=== PATIENT | male | born 1965 | race Caucasian/White ===

== ENCOUNTER 2018-04-07 08:15 | Emergency (ER) | payer OTHER, SELFPAY ==
[2018-04-07 08:17] VITALS: BP 149/93; PULSE 82; RESP 16; TEMP 36.7; O2SAT 98; BMI 32.6
--- NOTE | 2018-04-07 08:27 | RAD_ITS ---
STUDY: X-RAY - RIGHT SHOULDER REASON FOR EXAM: Male, 52 years old. Right shoulder pain following recent injury. TECHNIQUE: 4 view(s) of the shoulder. COMPARISON: None. FINDINGS: Normal glenohumeral articulation. There is degenerative arthrosis of the acromioclavicular joint without inferior osseous spur formation. Normal acromion. Normal humeral head and visualized proximal humerus. There is periarticular soft tissue calcification consistent with a calcific tendinitis. Normal visualized pulmonary apex. RAD/Shoulder min 2 Views IMPRESSION: There is evidence of a calcific tendinitis. Degenerative changes of the acromioclavicular joint. Electronically Signed: Tyrell Moore MD at 8:52 EST Tel [phone], Service support ,
--- NOTE | 2018-04-07 08:28 | ED.VISSUMM ---
- ER Visit Summary Date of Service: 04/07/18 Chief Complaint: Right shoulder pain History of Present Illness: The patient is a 52 M who has right shoulder pain. 2 days ago he was riding in his body when the horse tugged on the reigns and pulled his right arm. He has had pain in the right shoulder since then. Hurts to move it. He has tried Advil at home without any relief. He states that this happened about a year ago but it got better. He has had no previous shoulder surgeries. Physical Examination: Vital signs reviewed. He has tenderness to palpation of the AC joint. There is no clavicular tenderness. He has decreased range of motion secondary to the pain. Test Results: Right shoulder x-ray reveals chronic/degenerative changes Emergency Department Course and Treatment: My concern is that he may have a rotator cuff injury with his limited range of motion because of the pain. I will place him in a sling. He was instructed to come out of the sling multiple times a day for range of motion exercises. I will give him naproxen for pain at home. He got one Shelby tablet here. I will give him orthopedic follow-up. Treatment Plan: [] Disposition: Discharge Impression: Right shoulder pain This note was generated with [employer] dictation software. It may contain incorrect words, spelling, and punctuation that were not noted in review of the chart prior to signing ED Disposition - Plan for ED Patient: Chief Complaint: Upper Extremity Injury Referrals: Rajendra Garcia MD [Primary Care Provider] -
[2018-04-07] MEDS: HYDROcodone Bitartrate/Apap 5/325 Tablet PO (08:49)
--- NOTE | 2018-04-07 09:10 | ED.DEP ---
ED Disposition - Plan for ED Patient: Disposition: Home or Assisted Living Chief Complaint: Upper Extremity Injury Instructions: ED Shoulder Pain [facility] Prescriptions: Naproxen [Naprosyn] 500 mg PO BID PRN #20 tab Referrals: Rajendra Garcia MD [Primary Care Provider] - Rafael Awan DO [STAFF PHYSICIAN] -
== END 2018-04-07 09:27 | disposition home or self-care (01) ==
PROVIDERS: Emergency Provider Emergency Medicine; Family Provider Family Medicine; PCP Family Medicine
DX: M25.511 Pain in right shoulder (principal); X50.9XXA Other and unspecified overexertion or strenuous movements or postures, initial encounter; Y93.52 Activity, horseback riding; Y92.9 Unspecified place or not applicable
CPT/HCPCS: 73030; 99283

== ENCOUNTER 2020-01-18 20:59 | Emergency (ER) | payer OTHER, SELFPAY ==
[2020-01-18 21:00] VITALS: BP 116/56; PULSE 96; RESP 20; TEMP 37.4; O2SAT 96; BMI 32.5
--- NOTE | 2020-01-18 21:32 | RAD_ITS ---
STUDY: X-RAY CHEST REASON FOR EXAM: Male, 54 years old. COLD SYMPTOMS, FEVER TECHNIQUE: Frontal and lateral views COMPARISON: 06/23/2013 FINDINGS: The lungs are not fully expanded. Possible left perihilar infiltrate. Normal size heart. Normal mediastinum and geo. Normal visualized pulmonary arteries. Normal visualized aortic arch and descending thoracic aorta. Normal visualized thoracic spine. Normal visualized ribs, clavicles, and shoulders. There is no demonstrated abnormality of the visualized soft tissue structures of the upper abdomen. RAD/Chest PA and Lateral IMPRESSION: Possible left perihilar infiltrate. Electronically Signed: Dennis Bower DO at 22:29 EDT Tel [phone], Service support ,
[2020-01-18 21:35] LABS: Absolute Lymphocyte Count 1.02 X10^3/uL (0.83-4.51); Absolute Neutrophil Count 3.6 X10^3/uL (2.0-7.7); Basophil# 0.01 X10^3/uL; Basophil% 0.2 % (0-1); Eosinophil# 0.01 X10^3/uL; Eosinophils% 0.2 % (0-5); Hematocrit 42.9 % (40-54); Hemoglobin 14.5 g/dL (13.0-16.5); Lymphocyte # 1.02 X10^3/ul (4.0); Lymphocyte % 20.2 % (19-41); Mean Corp Hgb Conc 33.8 g/dL (32-36); Mean Corpuscular Volume 94.7 fL (80-94); Mean Platelet Vol. 9.6 fl (6.2-12.0); Monocyte# 0.41 X10^3/uL; Monocyte% 8.1 % (0-10); NRBC Flagged by Analyzer 0 % (0-5); Neutrophil # 3.58 X10^3/uL (2.7-7.7); Neutrophil % 70.9 % (47-70); Platelet Count 192 K/mm3 (150-450); RBC Distribution Width CV 12.5 % (11.6-14.6); RBC Distribution Width SD 43.7 fl (35.1-43.9); Red Blood Count 4.53 M/mm3 (4.6-6.2); White Blood Count 5.1 K/mm3 (4.4-11.0)
--- NOTE | 2020-01-18 21:43 | ED.VIS.GEN ---
History of Present Illness Chief Complaint: Fever Detail of Chief Complaint: Presents with fever, slight cough that is nonproductive Informant: Patient, Significant Other Onset: - Saturday, 2 days ago Context: Sudden Onset Timing: Intermittent Quality: Fever, nonproductive cough Location: Respiratory Current Severity: Mild Maximum Severity: Moderate Worsened by: Nothing Relieved by: Fever controlled with antipyretic Associated Symptoms: No COVID exposure, no loss of taste or smell, see HPI Narrative: Patient is a middle-age male who is a non-smoker and presents with fever that started Saturday. Fevers been intermittent. He does report slight cough. His major concern is pneumonia. He denies headache. He denies visual, ocular auditory symptoms. He denies rhinorrhea, congestion or postnasal drainage. Denies sore throat. Denies loss of taste or smell. He denies photophobia, neck pain or neck stiffness. He denies chest discomfort. He denies nausea, vomiting diarrhea. He denies dysuria, frequency, urgency or hematuria. He denies muscle aches or joint aches. He denies rash. Prior similar symptoms: Yes - Pneumonia Recent Illness/Hospitalization: No - Past Medical History (1) Pneumonia Status: Resolved Past Medical History - Allergies and Home Meds Allergies/Adverse Reactions: Allergies No Known Allergies Allergy (Verified 04/07/18 08:19) Primary Care Physician: Rajendra Garcia MD [Primary Care Provider] - Prior records reviewed: Yes Surgical History: no surgical history Lives: Spouse/ Significant Other Smoking Status: Never smoker Alcohol: None Drugs: None Review of Systems General: Reports: Chills, Fever, Sweats. Denies: Malaise, Subjective Eyes: Denies: Visual changes - bilaterally, Blurred Vision - bilaterally ENT: Denies: Bilateral ear pain, Rhinorrhea, Sore throat Cardiovascular: Denies: Chest pain, Palpitations Respiratory: Reports: Dyspnea, Cough. Denies: Sputum, Dyspnea on exertion, Orthopnea, Paroxysmal nocturnal dyspnea Gastrointestinal: Denies: Abdominal pain, Nausea, Vomiting, Diarrhea, Melena, Hematochezia Genitourinary: Denies: Dysuria, Hematuria, Frequency Musculoskeletal: Denies: Myalgias, Arthralgias, Neck pain, Back pain, Swelling, Extremity Pain, -, - Skin: Denies: Rash, Wounds Neurological: Denies: Headache, Weakness, Parasthesia Endocrine: Denies: Polyuria, Polydipsia Hematologic: Denies: Easy bruising, Easy bleeding Physical Exam Vital Signs/Narrative: Vital Signs Temp Pulse Resp BP Pulse Ox 01/18/20 21:00 99.3 F H 96 20 H 116/56 L 96 Inital Vital Signs reviewed: Yes General: Well nourished, Well developed, Obese, No Acute Distress Head: Normocephalic, Atraumatic Eyes: Perrl, EOMI. Negative for: Pale conjunctiva, Scleral icterus ENT: Moist mucous membranes, No rhinorrhea, TM's clear. Negative for: Nasal congestion, Sinus tenderness Neck: Supple, Nontender, No lymphadenopathy, No JVD Cardiovascular: Regular rate, Regular rhythm, No murmurs, Normal S1, Normal S2 Respiratory: No distress, Chest nontender, Rales - Left lower lobe posteriorly. Negative for: CTA bilaterally Abdomen: Soft, Nontender, Nondistended, Normal bowel sounds Rectal: Deferred Back: Nontender, Normal Inspection. Negative for: CVA tenderness Extremities: Nontender, No edema Skin: Normal color, No rash, Diaphoresis, No Trauma. Negative for: Cyanosis, Jaundice, Pallor, Rash Neurological: Alert, Oriented x3, Cranial nerves II-XII grossly intact, Normal Strength, Normal Sensation Psychological: Normal affect, Normal Mood Diagnostic/Tx/Re-eval Chest X-Ray - ED: 2 View, Read by ED Physician, Normal, Heart, Mediastinum, Bony Structures 01/18/20 21:32 Chest PA and Lateral [RAD] Stat Laboratory Results 01/18/20 21:30 WBC 5.1 RBC 4.53 L Hgb 14.5 Hct 42.9 MCV 94.7 H MCH 32.0 MCHC 33.8 RDW Std Deviation 43.7 RDW Coeff of Shabbir 12.5 Plt Count 192 MPV 9.6 Immature Gran % (Auto) 0.400 Neut % (Auto) 70.9 H Lymph % (Auto) 20.2 [place] % (Auto) 8.1 Eos % (Auto) 0.2 Baso % (Auto) 0.2 Absolute Neuts (auto) 3.6 Absolute Lymphs (auto) 1.02 Nucleated RBC % 0 01/18/20 21:32 Chest PA and Lateral [RAD] Stat Laboratory Results 01/18/20 01/18/20 01/18/20 21:30 21:30 21:30 WBC 5.1 RBC 4.53 L Hgb 14.5 Hct 42.9 MCV 94.7 H MCH 32.0 MCHC 33.8 RDW Std Deviation 43.7 RDW Coeff of Shabbir 12.5 Plt Count 192 MPV 9.6 Immature Gran % (Auto) 0.400 Neut % (Auto) 70.9 H Lymph % (Auto) 20.2 [place] % (Auto) 8.1 Eos % (Auto) 0.2 Baso % (Auto) 0.2 Absolute Neuts (auto) 3.6 Absolute Lymphs (auto) 1.02 Nucleated RBC % 0 Sodium 137 Potassium 3.6 Chloride 105 Carbon Dioxide 25.0 Anion Gap 7 BUN 14 Creatinine 1.01 Estim Creat Clear Calc 79.95 Est GFR (MDRD) Af Amer 99 Est GFR (MDRD) Non-Af 81 BUN/Creatinine Ratio 13.9 Glucose 121 H Lactic Acid 0.8 Calcium 8.8 Normal white count, renal function and lactate and x-ray that does not reveal infiltrate we will treat for upper respiratory viral infection since symptoms have been less than 48 hours. - Medical Decision Making Presents with infectious symptoms. This may represent viral pneumonia, viral upper respiratory infection or bacterial pneumonia. Blood work and chest x-ray was obtained. ED Disposition - Plan for ED Patient: Disposition: Home or Assisted Living Diagnosis: Upper respiratory infection, acute Instructions: ED URI Viral Prescriptions: Albuterol Inhaler [Ventolin Hfa] 2 puff INHALATION Q4H PRN PRN #1 inhaler PRN Reason: Wheezing Transmission Status: Pending to [id number] Referrals: Rajendra Garcia MD [Primary Care Provider] - 10-14 Days if not better
[2020-01-18 21:54] LABS: Anion Gap 7 (5-15); BUN 14 mg/dL (7-18); BUN/Creat Ratio 13.9 RATIO (10-20); Calcium,Total 8.8 mg/dL (8.5-10.1); Chloride 105 mmol/L (98-107); Creatinine, Serum 1.01 mg/dL (0.70-1.30); EST Glomerular Filtration Rate 81 mL/min (>60); Est Glom Filt Rate - Afr Amer 99 mL/min (>60); Estimated Creatinine Clearance 79.95 ml/min; Glucose 121 mg/dL (74-106); Potassium 3.6 mmol/L (3.5-5.1); Sodium Level 137 mmol/L (136-145)
[2020-01-18 21:58] LABS: Lactic Acid 0.8 mmol/L (0.4-1.9)
== END 2020-01-18 22:23 | disposition home or self-care (01) ==
LOC: ED 22:13
PROVIDERS: Emergency Provider Emergency Medicine; PCP Family Medicine
DX: J06.9 Acute upper respiratory infection, unspecified (principal); E66.9 Obesity, unspecified; Z87.01 Personal history of pneumonia (recurrent)
CPT/HCPCS: 71046; 80048; 83605; 85025; 99281; 99284; A4216

== ENCOUNTER 2020-03-03 21:35 | Emergency (ER) | payer OTHER, SELFPAY ==
[2020-03-03 21:35] VITALS: BP 159/71; PULSE 73; RESP 16; TEMP 36.1; O2SAT 97; BMI 35.6
[2020-03-03 21:50] VITALS: BP 146/88; BP 148/99; BP 153/97; PULSE 73; PULSE 75; PULSE 79; RESP 16; O2SAT 95
--- NOTE | 2020-03-03 22:08 | CT_ITS ---
HISTORY: DIZZINESS EXAMINATION: CT Head or Brain W/O Contrast Injection TECHNIQUE: Multiple axial images were obtained of the brain without intravenous contrast. A radiation dose optimization technique was used for this scan. IV Contrast dosage and agent: None COMPARISON: None FINDINGS: Developmental midline cavum septum pellucidum and vergae. No hydrocephalus. No intracranial mass, hemorrhage, or acute intracranial abnormality. Posterior fossa structures are unremarkable. No suspicious extra-axial fluid collection. As visualized, the mastoids are clear. Moderate opacification of the right maxillary sinus. Left maxillary sinus mild mucosal thickening. CT/Brain/Head without Contrast IMPRESSION: 1. No intracranial hemorrhage or acute intracranial disease. 2. Right maxillary sinusitis and additional minor mucosal thickening of the left maxillary sinus. Individualized dose optimization techniques were used for this CT. at 0028 Reported and signed by: Vaughn Montoya MD Electronically Signed: Vaughn Montoya, at 0:27 EST Tel , Service support ,
--- NOTE | 2020-03-03 22:08 | EKG12_ITS ---
Test Reason : DYSRHYTHMIA Blood Pressure : / mmHG Vent. Rate : 070 BPM Atrial Rate : 070 BPM P-R Int : 174 ms QRS Dur : 094 ms QT Int : 394 ms P-R-T Axes : 042 020 016 degrees QTc Int : 425 ms Normal sinus rhythm Normal ECG Confirmed by LEEANN MIKE, YOLANDA ([id number]), story editor MICHAEL JORDAN ([id number]) on 03/08/2020 9:03:01 AM Referred By: Confirmed By:YOLANDA BRADSHAW MD
--- NOTE | 2020-03-03 22:11 | ED.VISSUMM ---
- ER Visit Summary Date of Service: 03/03/20 Chief Complaint: Dizziness History of Present Illness: The patient is a 54 M presenting with dizziness. Patient states he woke up this morning and when he was laying flat he felt dizzy. He states when he stood up and moved around he started to feel improved. He states he was well throughout the day and had another episode tonight when he laid down. He states the dizziness is difficult to describe but describes it as lightheadedness, denies vertigo. He denies syncope. He denies numbness or weakness. Denies vision or speech changes. Denies headache. Denies chest pain or shortness of breath. He had Covid over a month ago and has been back to work for 1 month. He states those symptoms have resolved. He denies fever or other complaints. Physical Examination: Vitals are stable. Patient is afebrile. Alert no acute distress. HEENT exam is unremarkable. Neck is supple. No meningismus Lungs are clear and equal bilaterally. Heart is regular rate and rhythm. Abdomen is soft nontender nondistended. Extremities are unremarkable. Skin is warm and dry. No focal neurologic deficit. Normal strength and sensation. Remainder of exam is unremarkable. Emergency Department Course and Treatment: Patient given IV fluids. Chest x-ray shows no acute process. EKG is sinus rhythm rate of 70 with no acute ischemic changes. CBC, chemistries unremarkable. Troponin is negative. D-dimer negative. CT head shows No intracranial hemorrhage or acute intracranial disease. On reevaluation patient's symptoms have resolved. He feels comfortable with discharge home. He is advised to follow-up with his primary care physician. Advised return to ED for worsening complaints. Disposition: Discharge home Impression: Dizziness-resolved This note was generated with [employer] dictation software. It may contain incorrect words, spelling, and punctuation that were not noted in review of the chart prior to signing ED Disposition - Plan for ED Patient: Referrals: Rajendra Garcia MD [Primary Care Provider] -
--- NOTE | 2020-03-03 23:04 | RAD_ITS ---
HISTORY: DIZZINESS WHEN LAYING FLAT, PT WAS DIAGNOSED WITH COVID 1+ MONTH AGO, NO SYMPTOMS EXAMINATION/TECHNIQUE: XR Chest 1 View: Portable upright COMPARISON: 01/18/2020 FINDINGS: Previously seen bilateral small perihilar infiltrates have cleared. No new or acute infiltrates. Normal heart size. No vascular congestion or pleural effusion. No pneumothorax. RAD/Chest 1 View (Portable) IMPRESSION: 1. No acute cardiopulmonary disease. 2. Previously seen bilateral small perihilar infiltrates have cleared. at 2327 Reported and signed by: Vaughn Montoya MD Electronically Signed: Vaughn Montoya, at 23:24 EST Tel , Service support ,
[2020-03-03 23:32] VITALS: BP 154/78; PULSE 84; RESP 16; O2SAT 99
[2020-03-03] MEDS: 0.9% Normal Saline 1,000 ML 1000 ML IV (23:34)
[2020-03-03 23:38] LABS: Absolute Neutrophil Count 2.9 X10^3/uL (2.0-7.7); Basophil# 0.02 X10^3/uL; Basophil% 0.4 % (0-1); Eosinophil# 0.22 X10^3/uL; Hematocrit 42.3 % (40-54); Hemoglobin 14.1 g/dL (13.0-16.5); Lymphocyte % 32.7 % (19-41); Mean Corp Hgb Conc 33.3 g/dL (32-36); Mean Corpuscular Volume 96.1 fL (80-94); Mean Platelet Vol. 9.4 fl (6.2-12.0); Monocyte# 0.55 X10^3/uL; NRBC Flagged by Analyzer 0 % (0-5); Neutrophil # 2.88 X10^3/uL (2.7-7.7); Neutrophil % 52.4 % (47-70); Platelet Count 296 K/mm3 (150-450); RBC Distribution Width CV 12.9 % (11.6-14.6); RBC Distribution Width SD 45.7 fl (35.1-43.9); White Blood Count 5.5 K/mm3 (4.4-11.0)
[2020-03-03 23:42] LABS: D-Dimer Quantitative (DVT/PE) 0.28 FEU/ug/m (0.27-0.49)
[2020-03-03 23:52] LABS: Anion Gap 5 (5-15); BUN 19 mg/dL (7-18); BUN/Creat Ratio 21.8 RATIO (10-20); Calcium,Total 9.6 mg/dL (8.5-10.1); Chloride 111 mmol/L (98-107); Creatinine, Serum 0.87 mg/dL (0.70-1.30); EST Glomerular Filtration Rate 96 mL/min (>60); Est Glom Filt Rate - Afr Amer 117 mL/min (>60); Estimated Creatinine Clearance 86.57 ml/min; Glucose 100 mg/dL (74-106); Potassium 4.1 mmol/L (3.5-5.1); Sodium Level 143 mmol/L (136-145)
--- NOTE | 2020-03-04 00:41 | ED.DEP ---
ED Disposition - Plan for ED Patient: Instructions: ED Dizziness [facility] Referrals: Rajednra Garcia MD [Primary Care Provider] -
[2020-03-04 00:54] VITALS: BP 148/89; PULSE 71; RESP 16; O2SAT 99
--- NOTE | 2020-03-04 00:55 | ED.RN ---
THIS NURSE REVIEWED D/C INSTRUCTIONS WITH PT. PT VERBALIZED UNDERSTANDING OF INSTRUCTIONS. IV D/C. IV CATHETER INTACT. PT TOLERATED WELL. PT DENIES FURTHER NEEDS OR QUESTIONS AT THIS TIME
== END 2020-03-04 00:56 | disposition home or self-care (01) ==
LOC: ED 22:33
PROVIDERS: Emergency Provider Emergency Medicine; PCP Family Medicine
DX: R42 Dizziness and giddiness (principal)
CPT/HCPCS: 70450; 71045; 80048; 84484; 85025; 85379; 93005; 96360; 99284; J7030; A4216

== ENCOUNTER 2022-03-24 09:43 | Emergency (ER) | payer OTHER, SELFPAY ==
[2022-03-24 09:43] VITALS: BP 183/92; PULSE 85; RESP 18; TEMP 36.9; O2SAT 96; BMI 35.0
--- NOTE | 2022-03-24 09:49 | RAD_ITS ---
EXAM: XR LEFT KNEE COMPLETE, 4 OR MORE VIEWS CLINICAL INDICATION: pain felt a pop TECHNIQUE: Four or more views of the left knee. This report was created using [employer] report generation technology. COMPARISON: None. FINDINGS: BONES/JOINTS: Mild narrowing with bone spurs of the patellofemoral articulation. No acute fracture. No subluxation. Normal alignment. No sclerotic or destructive changes observed. SOFT TISSUES: Unremarkable. No soft tissue swelling or gas. No radiopaque foreign body. RAD/Knee 4 or More Views IMPRESSION: 1. No acute fracture or dislocation of the left knee. 2. Degenerative narrowing of the patellofemoral articulation with minimal bone spurs. Electronically Signed: Fuentes Humphries MD at 10:18 EST ,
--- NOTE | 2022-03-24 11:46 | EDS_ITS ---
HPI History of Present Illness Chief Complaint: Lower Extremity Injury Narrative Narrative: 56-year-old male presenting with left knee pain. He states his posterior to the left knee and on the medial aspect of the left knee. Patient states that he feels like he had a bone spur in the right foot a couple of weeks ago which slowly improved. He states that during that time he was favoring his left leg. He feels like he strained something. He follow-up with Dr. Chip Villalba and was placed on some anti-inflammatories. An x-ray of that time was negative. Patient states that today when he was walking he felt a pop behind his knee. He is still ambulatory with antalgic gait. He has been using crutches to help him get around. He was using a knee compression when this occurred. Denies any direct trauma. No swelling, redness to the knee. No history of DVT/PE and no risk factors. PFSH PFSH Medical History no medical history Home Medications multivitamin 1 ea PO DAILY 03/03/20 [History Last Taken Unknown] amoxicillin 875 mg-potassium clavulanate 125 mg tablet (Augmentin) 1 tab PO Q12H #14 tabs 03/13/21 [Rx Last Taken Unknown] cyclobenzaprine 10 mg tablet 10 mg PO BID PRN muscle spasm #14 tabs 03/24/22 [Rx Last Taken Unknown] naproxen 500 mg tablet (Naprosyn) 500 mg PO BID PRN pain #20 tabs 03/24/22 [Rx Last Taken Unknown] Allergy/AdvReac Type Severity Reaction Status Date / Time No Known Allergies Allergy Verified 03/03/20 21:38 Family History no significant family his Surgical History no surgical history Social History Smoking Status: Never smoker ROS ROS ED Constitutional Constitutional ED: Denies chills or fever(s) Eyes Eyes: Denies change in vision or diplopia ENT ENT ED: Denies rhinorrhea or sore throat Cardiovascular Cardiovascular: Denies chest pain or palpitations Respiratory/Chest Respiratory/Chest: Denies cough or dyspnea Gastrointestinal Gastrointestinal: Denies abdominal pain or constipation Genitourinary Genitourinary ED: Denies dysuria or hematuria Musculoskeletal Musculoskeletal: Reports other Details: Left knee pain Integumentary Denies abscess Neurologic Neurologic: Denies headache(s) or paresthesias Psychiatric Psychiatric: Denies anxiety or depression Endocrine Endocrinology: Denies polydipsia or polyphagia EXAM Physical Exam Const Vital Signs: 03/24/22 09:43 Temperature 98.4 F Temperature Source Temporal Pulse Rate 85 Respiratory Rate 18 Blood Pressure 183/92 H Blood Pressure Mean 122 Pulse Ox 96 Oxygen Delivery Method Room Air Positive well nourished General Appearance ED: NAD HEENT Reports moist mucous membranes normocephalic and atraumatic Resp normal respiratory effort Cardio regular rate and regular rhythm Extremity Extremity Narrative: Tenderness palpation over the medial aspect of the left knee along the joint line. There is also some tenderness to palpation posterior to the left knee. There is no edema, erythema, warmth. Left knee extensor mechanism is intact. No short arc range of motion pain. No ligamentous laxity. Neuro oriented x3 and CN's II-XII intact bilaterally Psych mental status grossly normal Skin no wounds Lesions: no lesions MDM MDM MDM Narrative Medical decision making narrative: Patient presenting with knee pain which has had for couple of weeks. He is already been seen by orthopedics and had an x-ray which was negative. Patient was taking Motrin and was given an arthritis cream by Dr. Villalba. X-ray obtained today on my interpretation shows no acute fracture or dislocation. There are some degenerative changes. Radiologist interprets this and agrees. No suspicion for a septic joint. Extensor mechanism is intact. There is pain behind the left knee in the medial aspect of the joint line. I suspect maybe he strained something but without any ligamentous laxity I doubt that he tore a ligament. It is possible he has a muscular strain behind the left knee since it tender back there. No history of DVT/PE and no risk factors. Patient offered outpatient ultrasound however and declines. I will put him on Naprosyn and Flexeril for home. He is to continue ice and compression. He will follow-up [facility] Dr. Villalba. Impression: 1. Left knee strain Lab Data Attestation: I reviewed the patient's lab results. Radiography Diagnostic Testing: Clinical Impression(s) from Imaging Studies Knee X-Ray 03/24/22 09:49 IMPRESSION: 1. No acute fracture or dislocation of the left knee. 2. Degenerative narrowing of the patellofemoral articulation with minimal bone spurs. Electronically Signed: Fuentes Humphries MD at 10:18 EST Reading Location ID and State: [address] [place] [address] , Service support , Discharge Plan Triage Chief Complaint: Lower Extremity Injury ED Provider: Dale Cole Dx/Rx/DC Orders Instructions: ED Knee Pain of Uncertain Cause Prescriptions: New naproxen [Naprosyn] 500 mg tablet 500 mg PO BID PRN (Reason: pain) Qty: 20 0RF cyclobenzaprine 10 mg tablet 10 mg PO BID PRN (Reason: muscle spasm) Qty: 14 0RF No Action amoxicillin-pot clavulanate [Augmentin] 875-125 mg tablet 1 tab PO Q12H Qty: 14 0RF multivitamin 1 EACH tablet 1 ea PO DAILY Primary Care Provider: Rajendra Garcia Referrals: Chip Villalba MD [Med Staff - Active Staff] - As soon as possible Rajendra Garcia MD [Primary Care Provider] - Disposition Disposition: Home, Self Care
[2022-03-24] MEDS: Naproxen 500 MG Tablet PO (11:57)
== END 2022-03-24 12:09 | disposition home or self-care (01) ==
PROVIDERS: Emergency Provider Student in an Organized Health Care Education/Training Program; PCP Family Medicine; Visit Provider Student in an Organized Health Care Education/Training Program
DX: S83.92XA Sprain of unspecified site of left knee, initial encounter (principal); X58.XXXA Exposure to other specified factors, initial encounter
CPT/HCPCS: 73564; 99282

== ENCOUNTER 2024-02-09 17:42 | Emergency (ER) | payer OTHER, SELFPAY ==
[2024-02-09 17:43] VITALS: BP 159/93; PULSE 87; RESP 16; TEMP 37.1; O2SAT 93; BMI 36.0
--- NOTE | 2024-02-09 17:58 | EX.ED.DYSGE1 ---
HPI <JOSIAH Sterling - Last Filed: 02/09/24 19:02> History of Present Illness Chief Complaint: Cough Narrative Narrative: 58-year-old male with no past medical history presents with chest pain. He states over the last 10 days or so he has had a productive cough. His family members and grandsons were all sick with similar symptoms so he did not think much of it. Over the last 3 days when he has a deep cough he has pain in 1 small area on the left side of his chest. It also hurts with movement and he thought it was possibly a muscle strain. He denies feeling short of breath. He has not had fever or chills. Is able to do his normal activities without dyspnea or chest pain. He does not smoke. PFSH <JOSIAH Sterling - Last Filed: 02/09/24 19:02> [facility] Medical History no medical history Home Medications ?Medication ?Instructions ?Recorded ?Last Taken ?Type multivitamin 1 ea PO DAILY 03/03/20 Unknown History amoxicillin 875 mg-potassium 1 tab PO Q12H #14 tabs 03/13/21 Unknown Rx clavulanate 125 mg tablet (Augmentin) cyclobenzaprine 10 mg tablet 10 mg PO BID PRN muscle spasm #14 03/24/22 Unknown Rx tabs naproxen 500 mg tablet (Naprosyn) 500 mg PO BID PRN pain #20 tabs 03/24/22 Unknown Rx albuterol sulfate 90 mcg/actuation 1 - 2 puff inhalation Q4H PRN PRN 02/09/24 Unknown Rx aerosol inhaler (Ventolin HFA) Wheezing 30 days #1 device Allergy/AdvReac Type Severity Reaction Status Date / Time No Known Allergies Allergy Verified 02/09/24 17:46 Social History Smoking Status: Never smoker ROS <JOSIAH Sterling - Last Filed: 02/09/24 19:02> ROS ED ROS Narrative Constitutional: Negative for fever, chills, malaise. CVS: Negative for palpitations, syncope. Respiratory: Positive for cough. No shortness of breath. GI: Negative for abdominal pain, nausea, vomiting. EXAM <JOSIAH Sterling - Last Filed: 02/09/24 19:02> Physical Exam Narrative Exam Narrative: CONST: Patient sitting in no acute distress. EYES: Normal inspection. NECK: Normal inspection. RESP: No respiratory distress, CTAB. Tender over small focal area left lower mid sternal border. CVS: Regular rate and rhythm, no murmur, no gallop. ABD: Soft and nontender, no guarding or rebound, nondistended. SKIN: Color normal, no rash, warm, dry, intact. EXTREMITIES: Normal appearance, no pedal edema. NEURO: Alert and answering questions appropriately. PSYCH: Normal affect. Const Vital Signs: 02/09/24 17:43 02/09/24 17:59 Temperature 98.8 F Temperature Source Oral Pulse Rate 87 Respiratory Rate 16 Respiratory Effort Normal Respiratory Depth Normal Respiratory Pattern Normal Blood Pressure 159/93 H Blood Pressure Mean 115 Pulse Ox 93 Oxygen Delivery Method Room Air <Dr. Melecio Rutledge MD - Last Filed: 02/09/24 19:13> Physical Exam Const Vital Signs: 02/09/24 17:43 02/09/24 17:59 Temperature 98.8 F Temperature Source Oral Pulse Rate 87 Respiratory Rate 16 Respiratory Effort Normal Respiratory Depth Normal Respiratory Pattern Normal Blood Pressure 159/93 H Blood Pressure Mean 115 Pulse Ox 93 Oxygen Delivery Method Room Air MDM <JOSIAH Sterling - Last Filed: 02/09/24 19:02> [facility] Narrative Medical decision making narrative: History gathered from: Patient and spouse Patient has left anterior lower chest pain with coughing. Recent URI and sick contacts. He has no exertional pain or dyspnea. He appears well and nontoxic with stable vital signs. Normal heart and lung sounds. He is tender over 1 focal area of the left lower chest wall. CXR shows no acute process. I suspect he has a muscle strain and prescribed an albuterol MDI and recommended [id number] analgesia. I do not think he requires further workup as I do not suspect ACS or PE based on his symptomatology. He was discharged in stable condition. I have personally performed a face to face assessment of the patient and have reviewed the JUAN Note. I performed a substantive portion of the visit including all aspects of the following. My johnson findings include: History is remarkable for cough that started approximate week ago. The past couple of days has had white sputum. Other failed members are ill. He denies fever or chills. He does endorse mild postnasal drainage. He denies dyspnea or chest pain on exertion. He does complain of anterior left lower chest pain with coughing. Exam is remarkable and elevated blood pressure 159/93. HEENT exam is unremarkable. Neck is supple. Trach is midline. Lungs are without wheeze rales rhonchi. Breath sounds are equal. Abdomen is soft nontender. He is alert orient x 3. Medical Decision Making since he had a cough for greater than a week and now productive obtain chest x-ray to determine if there is evidence of pneumonia. No evidence of pneumonia will treat with antibiotics otherwise will treat with albuterol MDI. Other additions or changes: [None] Radiography Diagnostic Testing: Clinical Impression(s) from Imaging Studies Chest X-Ray 02/09/24 18:00 IMPRESSION: No radiographic evidence of acute cardiopulmonary disease. Electronically Signed: Milan Mendieta MD at 18:49 EST Reading Location ID and State: [facility] / [place] , Service support , ED attending interpretation of 2-view chest x-ray shows normal heart size, no acute infiltrate. <Dr. Melecio Rutledge MD - Last Filed: 02/09/24 19:13> [facility] MDM Narrative Medical decision making narrative: I have personally performed a face to face assessment of the patient and have reviewed the JUAN Note. I performed a substantive portion of the visit including all aspects of the following. My johnson findings include: History is remarkable for cough that started approximate week ago. The past couple of days has had white sputum. Other failed members are ill. He denies fever or chills. He does endorse mild postnasal drainage. He denies dyspnea or Russell exertion. He does complain of anterior left lower chest pain with coughing. Exam is remarkable and elevated blood pressure 159/93. HEENT exam is unremarkable. Neck is supple. Trach is midline. Lungs are without wheeze rales rhonchi. Breath sounds are equal. Abdomen is soft nontender. He is alert orient x 3. Medical Decision Making since he had a cough for greater than a week and now productive obtain chest x-ray to determine if there is evidence of pneumonia. No evidence of pneumonia will treat with antibiotics otherwise will treat with albuterol MDI. Other additions or changes: [None] Radiography Chest X-Ray - ED: 2 View, Read by ED Physician, Normal, Heart, Lungs, Mediastinum, Bony Structures and No Acute Disease Diagnostic Testing: Clinical Impression(s) from Imaging Studies Chest X-Ray 02/09/24 18:00 IMPRESSION: No radiographic evidence of acute cardiopulmonary disease. Electronically Signed: Milan Mendieta MD at 18:49 EST Reading Location ID and State: [facility] / [place] , Service support , Discharge Plan Triage Chief Complaint: Cough ED Midlevel Provider: Kathy Fowler ED Provider: Melecio Rutledge Dx/Rx/DC Orders Clinical Impression: Acute URI, Chest wall muscle strain Instructions: ED URI, Viral, No Abx (Adult) Prescriptions: New albuterol sulfate [Ventolin HFA] 90 mcg/actuation HFA aerosol inhaler 1 - 2 puff inhalation Q4H PRN PRN (Reason: Wheezing) 30 Days Qty: 1 0RF No Action amoxicillin-pot clavulanate [Augmentin] 875-125 mg tablet 1 tab PO Q12H Qty: 14 0RF multivitamin 1 EACH tablet 1 ea PO DAILY naproxen [Naprosyn] 500 mg tablet 500 mg PO BID PRN (Reason: pain) Qty: 20 0RF cyclobenzaprine 10 mg tablet 10 mg PO BID PRN (Reason: muscle spasm) Qty: 14 0RF Primary Care Provider: Rajendra Garcia Referrals: Rajendra Garcia MD [Primary Care Provider] - Activity Restrictions/Additional Instructions: Your chest x-ray shows no signs of pneumonia. You most likely had a viral cough that caused a muscle strain. Use Tylenol ibuprofen as needed and I prescribed an inhaler. Print Language: Malian Disposition Disposition: Home, Self Care Discharge Date/Time: 02/09/24 18:31
--- NOTE | 2024-02-09 18:00 | RAD_ITS ---
EXAM: XR CHEST, 2 VIEWS CLINICAL INDICATION: cough TECHNIQUE: Frontal and lateral views of the chest. COMPARISON: No relevant prior studies available. FINDINGS: LUNGS AND PLEURAL SPACES: Unremarkable. No consolidation or edema. No pneumothorax. No effusion. HEART: Unremarkable. Cardiac silhouette not enlarged. MEDIASTINUM: Central airways and mediastinal contour are unremarkable. BONES/JOINTS: Unremarkable. No acute fracture. SOFT TISSUES: Unremarkable. RAD/Chest PA and Lateral IMPRESSION: No radiographic evidence of acute cardiopulmonary disease. Electronically Signed: Milan Mendieta MD at 18:49 EST ,
== END 2024-02-09 18:31 | disposition home or self-care (01) ==
PROVIDERS: Emergency Provider Emergency Medicine; PCP Family Medicine; Visit Provider Emergency Medicine
DX: J06.9 Acute upper respiratory infection, unspecified (principal); S29.011A Strain of muscle and tendon of front wall of thorax, initial encounter
CPT/HCPCS: 71046; 99282